=== PATIENT | female | born 1995 | race Caucasian/White ===

== ENCOUNTER 2022-12-08 07:25 | Emergency (ER) | payer OTHER ==
[2022-12-08] MEDS ORDERED: ONDANSETRON 4 MG/2 ML VIAL ONE (07:46)
[2022-12-08] MEDS ORDERED: NA CHLORIDE 0.9% 1,000 ML ONE (07:46)
[2022-12-08 07:52] LABS: Specific Gravity 1.009 (1.005-1.030)
[2022-12-08 07:57] LABS: Specific Gravity 1.009 (1.005-1.030); Urine Bacteria None Seen /HPF (<20); Urine Bilirubin NEGATIVE (Negative); Urine Blood Negative (Negative); Urine Clarity Extremely Turbid (Clear); Urine Color Light-Yellow (Yellow); Urine Glucose NEGATIVE (Negative); Urine Protein NEGATIVE (Negative); Urine RBC <5 /HPF (None Seen); Urine Urobilinogen Normal (Normal); Urine pH 8.5 (5.0-7.0)
[2022-12-08] MEDS ORDERED: FENTANYL CITR 100 MCG/2 ML ONE (08:10)
[2022-12-08] MEDS ORDERED: FAMOTIDINE 20 MG/2 ML VIAL IV ONE (08:11)
[2022-12-08 08:16] LABS: Absolute Lymphocytes (CBC) 1.5 K/uL (0.7-4.9); Hematocrit 43.3 % (36.0-45.0); Lymphocytes % 17.6 % (15.3-44.8); MCV 89.8 fL (80-100); MPV 8.4 fL (7.6-11.3); RBC Red Blood Cell Count 4.83 M/uL (3.86-4.86)
--- NOTE | 2022-12-08 08:40 | RAD REPORT ---
EXAM DESCRIPTION: CTAbdomen Pelvis W Contrast - 12/08/2022 8:20 am CLINICAL HISTORY: Abdominal pain. ABD PAIN COMPARISON: No comparisons TECHNIQUE: Biphasic CT imaging of the abdomen and pelvis was performed with 100 ml non-ionic IV cont rast. All CT scans are performed using dose optimization technique as appropriate and may include automated exposure control or mA/KV adjustment according to patient size. FINDINGS: The lung bases are clear. The liver, spleen, pancreas, adrenal glands and kidneys are within normal limits. No bowel obstruction, free air, free fluid or abscess. The appendix is normal. No evidence of signi ficant lymphadenopathy. No suspicious bony findings. IMPRESSION: No acute intra-abdominal or pelvic finding.
[2022-12-08 08:51] LABS: Albumin 4.6 g/dL (3.4-5.0); Bilirubin Total 0.8 mg/dL (0.2-1.0)
--- NOTE | 2022-12-08 09:15 | EDPHYS ---
Physician Documentation [facility] Name: Olga Lidia Garcia Age: 27 yrs Sex: Female : 1995 Arrival Date: 12/08/2022 Time: 07:25 Bed 20 Private MD: MAYLIN Physician Camden Doe HPI: 12/08 08:28 This 27 yrs old Female presents to ER via Ambulatory with complaints of lazara Vomiting, Constipation. 08:28 This 27 yrs old Female presents to ER via Ambulatory with complaints of lazara Vomiting, Constipation. 08:28 The patient presents to the emergency department with nausea, vomiting, that is lazara continuous. Onset: The symptoms/episode began/occurred 1 day(s) ago. Possible causes: unknown. The symptoms are aggravated by food , The symptoms are alleviated by nothing. Associated signs and symptoms: Pertinent positives: abdominal pain, nausea, vomiting. Severity of symptoms: At their worst the symptoms were moderate in the emergency department the symptoms are unchanged. The patient has experienced similar episodes in the past, several times. 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 - Social history:: Smoking status: Patient reports the use of cigarette tobacco products, smokes one pack cigarettes per day. Patient uses street drugs, marijuana. ROS: 08:29 Constitutional: Negative for fever, chills, and weight loss, Eyes: Negative for injury, lazara pain, redness, and discharge, ENT: Negative for injury, pain, and discharge, Neck: Negative for injury, pain, and swelling, Cardiovascular: Negative for chest pain, palpitations, and edema, Respiratory: Negative for shortness of breath, cough, wheezing, and pleuritic chest pain, Back: Negative for injury and pain, : Negative for injury, bleeding, discharge, and swelling, MS/Extremity: Negative for injury and deformity, Skin: Negative for injury, rash, and discoloration, Neuro: Negative for headache, weakness, numbness, tingling, and seizure, Psych: Negative for depression, anxiety, suicide ideation, homicidal ideation, and hallucinations, Allergy/Immunology: Negative for hives, rash, and allergies, Endocrine: Negative for neck swelling, polydipsia, polyuria, polyphagia, and marked weight changes, Hematologic/Lymphatic: Negative for swollen nodes, abnormal bleeding, and unusual bruising. 08:29 Abdomen/GI: Positive for abdominal pain, nausea and vomiting, of the epigastric area, right upper quadrant and left upper quadrant. Exam: 08:29 Constitutional: This is a well developed, well nourished patient who is awake, alert, lazara and in no acute distress. Head/Face: Normocephalic, atraumatic. Eyes: Pupils equal round and reactive to light, extra-ocular motions intact. Lids and lashes normal. Conjunctiva and sclera are non-icteric and not injected. Cornea within normal limits. Periorbital areas with no swelling, redness, or edema. ENT: Nares patent. No nasal discharge, no septal abnormalities noted. Tympanic membranes are normal and external auditory canals are clear. Oropharynx with no redness, swelling, or masses, exudates, or evidence of obstruction, uvula midline. Mucous membranes moist. Neck: Trachea midline, no thyromegaly or masses palpated, and no cervical lymphadenopathy. Supple, full range of motion without nuchal rigidity, or vertebral point tenderness. No Meningismus. Chest/axilla: Normal chest wall appearance and motion. Nontender with no deformity. No lesions are appreciated. Cardiovascular: Regular rate and rhythm with a normal S1 and S2. No gallops, murmurs, or rubs. Normal PMI, no JVD. No pulse deficits. Respiratory: Lungs have equal breath sounds bilaterally, clear to auscultation and percussion. No rales, rhonchi or wheezes noted. No increased work of breathing, no retractions or nasal flaring. Back: No spinal tenderness. No costovertebral tenderness. Full range of motion. Female : Normal external genitalia. Skin: Warm, dry with normal turgor. Normal color with no rashes, no lesions, and no evidence of cellulitis. MS/ Extremity: Pulses equal, no cyanosis. Neurovascular intact. Full, normal range of motion. Neuro: Awake and alert, GCS 15, oriented to person, place, time, and situation. Cranial nerves II-XII grossly intact. Motor strength 5/5 in all extremities. Sensory grossly intact. Cerebellar exam normal. Normal gait. Psych: Awake, alert, with orientation to person, place and time. Behavior, mood, and affect are within normal limits. 08:29 Abdomen/GI: Inspection: abdomen appears normal, Bowel sounds: normal, Palpation: mild abdominal tenderness, in the epigastric area, right upper quadrant and left upper quadrant, Liver: no appreciated palpable abnormalities, Hernia: not appreciated. Vital Signs: 07:37 BP 149 / 89; Pulse 91; Resp 17; Temp 97.9; Pulse Ox 100% ; Weight 76.2 kg; Height 5 ft. ap3 7 in. ; Pain 5/10; 09:26 BP 102 / 67; Pulse 68; Pulse Ox 100% ; ap3 07:37 Body Mass Index 26.31 (76.20 kg, 170.18 cm) ap3 07:37 Pain Scale: Adult ap3 MDM: 07:29 Patient medically screened. lazara 08:31 Differential diagnosis: Nonspecific abd pain, gastritis, cholecystitis, pancreatitis, lazara appendicitis, diverticulitis, viral gastroenteritis, gastroenteritis, appendicitis, bowel obstruction. Data reviewed: vital signs, nurses notes, lab test result(s), EKG, radiologic studies, plain films. Consideration of Admission/Observation Escalation of care including admission/observation considered. I considered the following discharge prescriptions or medication management in the emergency department Medications were administered in the Emergency Department. See MAR. Independent interpretation of the following test(s) in the Emergency Department CT Scan: My interpretation is CT ABD/PELVIS. Test considered but Not performed: Ultrasound NO ABD USG. Care significantly affected by the following chronic conditions: NONE. 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 12/08 07:30 Order name: CBC with Diff; Complete Time: 09: lazara 12/08 07:30 Order name: CMP; Complete Time: :12/08 07:30 Order name: Lipase; Complete Time: 09:12/08 07:30 Order name: Test, Urine; Complete Time: 09:12/08 07:30 Order name: Urinalysis w/ reflexes; Complete Time: 09:12/08 07:44 Order name: CT Abd/Pelvis - IV Contrast Only; Complete Time: 09:13 [facility] 12/08 07:30 Order name: IV Saline Lock; Complete Time: 08:11 [facility] 12/08 07:30 Order name: Labs collected and sent; Complete Time: 08:11 lazara Administered Medications: 08:11 Drug: NS 0.9% IV 1000 ml Route: IV; Rate: 1 bolus; Site: right antecubital; ap3 10:04 Follow up: Response: No adverse reaction ap3 10:04 Follow up: Response: No adverse reaction ap3 08:11 Drug: Ondansetron IVP 4 mg Route: IVP; Site: right antecubital; ap3 10:04 Follow up: Response: No adverse reaction ap3 08:11 Drug: Famotidine IVP 20 mg Route: IVP; Site: right antecubital; ap3 09:26 Follow up: Response: No adverse reaction ap3 08:11 Drug: fentaNYL (PF) IVP 25 mcg Route: IVP; Site: right antecubital; ap3 09:27 Follow up: Response: No adverse reaction; Pain is decreased ap3 09:23 Drug: Potassium PO Effervescent Tablet 50 mEq Route: PO; ap3 10:03 Follow up: Response: No adverse reaction ap3 10:03 Not Given (Patient Refused): fentaNYL (PF) IVP 25 mcg IVP once ap3 Disposition Summary: 12/08/22 09:14 Discharge Ordered Location: Home lazara Problem: new alzara Symptoms: have improved lazara Condition: Stable lazara Diagnosis - Epigastric abdominal tenderness lazara - Vomiting lazara - Hypokalemia lazara Followup: lazara - With: Private Physician - When: 2 - 3 days - Reason: Recheck today's complaints, Continuance of care, Re-evaluation by your physician Followup: lazara - With: - When: 2 - 3 days - Reason: Recheck today's complaints, Re-evaluation by your physician Discharge Instructions: - Discharge Summary Sheet lazara - Abdominal Pain, Adult lazara - Potassium Content of Foods lazara - Abdominal Pain, Adult, [id number] lazara - Hypokalemia lazara - Vomiting, Adult lazara Forms: - Medication Reconciliation Form lazara - Thank You Letter lazara - Antibiotic Education lazara - Prescription Opioid Use lazara - Patient Portal Instructions lazara Prescriptions: - ondansetron 4 mg Oral Tablet,disintegrating - take 1 tablet by ORAL route every 6 hours for 5 days; 20 tablet; Refills: 0, [facility] Product Selection Permitted - Pepcid 20 mg Oral Tablet - take 1 tablet by ORAL route every 12 hours for 21 days; 42 tablet; Refills: 0, [facility] Product Selection Permitted - dicyclomine 20 mg Oral Tablet - take 1 tablet by ORAL route 4 times per day; 28 tablet; Refills: 0, Product [facility] Selection Permitted Signatures: Dispatcher [employer] Camden Mcqueen MD MD cha Prokisch, Amanda RN RN ap3
--- NOTE | 2022-12-08 09:15 | ER ---
Nurse's Notes [facility] Name: Olga Lidia Garcia Age: 27 yrs Sex: Female : 1995 Arrival Date: 12/08/2022 Time: 07:25 Bed 20 Private MD: Diagnosis: Epigastric abdominal tenderness;Vomiting;Hypokalemia Presentation: 12/08 07:37 Chief complaint: Patient states: she has been having upper abdominal cramping with ap3 nausea and vomiting since Saturday12/05/22. patient states her pain is currently a 5/10 on the pain scale. Coronavirus screen: At this time, the client does not indicate any symptoms associated with coronavirus-19. Ebola Screen: No symptoms or risks identified at this time. Initial Sepsis Screen: Does the patient meet any 2 criteria? No. Patient's initial sepsis screen is negative. Does the patient have a suspected source of infection? Yes: Acute abdominal pain. Risk Assessment: Do you want to hurt yourself or someone else? Patient reports no desire to harm self or others. Onset of symptoms was December 05, 2022. 07:37 Method Of Arrival: Ambulatory ap3 07:37 Acuity: STEVEN 3 ap3 Triage Assessment: 07:39 General: Appears uncomfortable, Behavior is calm, cooperative, appropriate for age. ap3 Pain: Complains of pain in epigastric area, right upper quadrant and left upper quadrant Pain currently is 5 out of 10 on a pain scale. Pain began gradually, 2-3 days ago. Neuro: Level of Consciousness is awake, alert, obeys commands, Oriented to person, place, time, situation. Cardiovascular: Patient's skin is warm and dry. Respiratory: Airway is patent Respiratory effort is even, unlabored, Respiratory pattern is regular, symmetrical. GI: Reports upper abdominal pain, nausea, vomiting. 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 - Social history:: Smoking status: Patient reports the use of cigarette tobacco products, smokes one pack cigarettes per day. Patient uses street drugs, marijuana. Screenin:40 [facility] ED Fall Risk Assessment (Adult) History of falling in the last 3 months, ap3 including since admission No falls in past 3 months (0 pts). Abuse screen: Denies threats or abuse. Nutritional screening: No deficits noted. Tuberculosis screening: No symptoms or risk factors identified. Assessment: 09:26 General: awaiting patients completion of medication prior to discharge. ap3 Vital Signs: 07:37 BP 149 / 89; Pulse 91; Resp 17; Temp 97.9; Pulse Ox 100% ; Weight 76.2 kg; Height 5 ft. ap3 7 in. ; Pain 5/10; 09:26 BP 102 / 67; Pulse 68; Pulse Ox 100% ; ap3 07:37 Body Mass Index 26.31 (76.20 kg, 170.18 cm) ap3 07:37 Pain Scale: Adult ap3 ED Course: 07:28 Patient arrived in ED. mr 07:29 Camden Doe MD is Attending Physician. lazara 07:37 Margie Patton, GUILLERMO is Primary Nurse. ap3 07:39 Triage completed. ap3 07:40 Arm band placed on right wrist. ap3 07:40 Patient has correct armband on for positive identification. Call light in reach. Side ap3 rails up X 1. Adult w/ patient. Pulse ox on. NIBP on. 07:41 Provided Education on: medication prior to administration. ap3 07:46 Test, Urine Sent. mm9 07:46 Urinalysis w/ reflexes Sent. mm9 07:47 Bed in low position. mm9 07:47 Urine collected: clean catch specimen, cloudy. mm9 08:11 Initial lab(s) drawn, by pa, sent to lab. Inserted saline lock: 20 gauge in right ap3 antecubital area, using aseptic technique. Blood collected. 08:23 CT Abd/Pelvis - IV Contrast Only In Process Unspecified. EDMS 08:37 CT completed. Patient tolerated procedure well. Patient moved back from CT. eh4 09:13 Isai Ball MD is Referral Physician. lazara 10:03 No provider procedures requiring assistance completed. IV discontinued, intact, ap3 bleeding controlled, No redness/swelling at site. Pressure dressing applied. Administered Medications: 08:11 Drug: NS 0.9% IV 1000 ml Route: IV; Rate: 1 bolus; Site: right antecubital; ap3 10:04 Follow up: Response: No adverse reaction ap3 10:04 Follow up: Response: No adverse reaction ap3 08:11 Drug: Ondansetron IVP 4 mg Route: IVP; Site: right antecubital; ap3 10:04 Follow up: Response: No adverse reaction ap3 08:11 Drug: Famotidine IVP 20 mg Route: IVP; Site: right antecubital; ap3 09:26 Follow up: Response: No adverse reaction ap3 08:11 Drug: fentaNYL (PF) IVP 25 mcg Route: IVP; Site: right antecubital; ap3 09:27 Follow up: Response: No adverse reaction; Pain is decreased ap3 09:23 Drug: Potassium PO Effervescent Tablet 50 mEq Route: PO; ap3 10:03 Follow up: Response: No adverse reaction ap3 10:03 Not Given (Patient Refused): fentaNYL (PF) IVP 25 mcg IVP once ap3 Medication: 10:03 VIS not applicable for this client. ap3 Outcome: 09:14 Discharge ordered by . lazara 10:03 Discharged to home ambulatory, with family. ap3 10:03 Condition: good 10:03 Discharge instructions given to patient, Instructed on discharge instructions, follow up and referral plans. medication usage, Demonstrated understanding of instructions, follow-up care, medications, Prescriptions given X 3. 10:04 Patient left the ED. ap3 Signatures: Dispatcher [employer] EDCamden Aldana MD MD cha Rivera, Mary mr Prokisch, Amanda, RN RN ap3 Adrien Silveira [facility] Tyra Abbott 9
[2022-12-08] MEDS ORDERED: POTASSIUM 25 MEQ EFFERV TAB ONE (09:27)
[2022-12-08 10:36] VITALS: TEMP 97.9; O2SAT 100
[2022-12-08 10:47] VITALS: BP 102/67
== END 2022-12-08 10:04 | disposition home or self-care (01) ==
LOC: ER 07:25
DX: E87.6 Hypokalemia (principal); R11.10 Vomiting, unspecified; F17.210 Nicotine dependence, cigarettes, uncomplicated
CPT/HCPCS: 85025; 81001; 36415; 81025; 83690; 80053; 74177; 96375; 96374; 99285; Q9967; J3010; J2405; J7030